=== PATIENT | female | born 1985 | race Caucasian/White ===

== ENCOUNTER → 2016-04-27 | Outpatient (CLI) | payer MEDICAID ==
[~2016-04-27] MED LIST: ACET500T3 PO; CALNTAB PO; PYRI25TA2 PO
== END ==
LOC: HPND 08:42
PROVIDERS: ATTEND Family Medicine
DX: Z34.01 Encounter for supervision of normal first pregnancy, first trimester (principal)
CPT/HCPCS: 76801

== ENCOUNTER 2016-08-26 15:50 | Emergency (ER) | payer MEDICAID ==
[~2016-08-26] VITALS: Ht 160 cm; Wt 59.8 kg
[~2016-08-26 15:50] MED LIST changes: -CALNTAB PO
[2016-08-26 16:02] VITALS: BP 107/67; PULSE 116; RESP 16; TEMP 99.7; O2SAT 99
[2016-08-26] MEDS ORDERED: CALNTAB PO (16:30)
[2016-08-26] MEDS ORDERED: ONDANSETRON ODT 4 MG TAB PO ONE (17:00)
--- NOTE | 2016-08-26 17:05 | PD ---
HPI Chief Complaint: ENT Complaint Time Seen by Provider: 16:57 Travel History International Travel<30 days: No Contact w/Intl Traveler<30days: No Traveled to known affect area: No History of Present Illness HPI 31 year-old 26-week female presents to the emergency room for evaluation of nonproductive cough, sore throat, headache, body aches, nausea, vomiting, and chills. She has not taken her temperature. Patient states she was at the hospital 2 days ago with her son and started feeling ill shortly afterward. She has not taken anything for her symptoms. Normal movement. Next OB appointment is in 11 days. PFS Past Medical History Depression: Yes Diminished Hearing: No Immunizations Current: No ?: : 4 Para: 2 : 2 Past Surgical History Gynecologic Surgery: Yes Social History Alcohol Use: No Tobacco Use: No Substance Use: No Allergies-Medications (Allergen,Severity, Reaction): Coded Allergies: Penicillin (Verified Allergy, Intermediate, Rash, 08/17/16) Reported Meds & Prescriptions Reported Meds & Active Scripts Active Reported Calna ( Vitamin) 1 Tab Tab 1 Tab PO DAILY Review of Systems Except as stated in HPI: all other systems reviewed are Neg Physical Exam Narrative GENERAL: Well-nourished, well-developed female in no acute distress. Afebrile. Ambulatory. SKIN: Warm and dry. HEAD: Normocephalic. EYES: No scleral icterus. No injection or drainage. ENT: Mucosa pink and moist. Mild erythema without exudates. No uvular edema. No uvular, palatal, or tonsillar deviation. Airway patent. Nasal turbinates appear normal without nasal blood, purulent drainage or septal hematoma. EARS: Bilateral pinnae and external canals appear within normal limits. Bilateral tympanic membranes without erythema, dullness or perforation. CARDIOVASCULAR: Regular rate and rhythm without murmurs, gallops, or rubs. RESPIRATORY: Breath sounds equal bilaterally. No accessory muscle use. No crackles, rales, wheezes, or rhonchi. Data Data Last Documented VS Vital Signs Date Time Temp Pulse Resp B/P Pulse Ox O2 Delivery O2 Flow Rate FiO2 08/26/16 16:02 99.7 116 16 107/67 99 Orders Influenzae A/B Antigen (08/26/16 16:56) Group A Rapid Strep Screen (08/26/16 16:56) Ondansetron Odt (Zofran Odt) (08/26/16 17:00) Strep Culture (Group A) (08/26/16 17:00) MDM Medical Decision Making Medical Screen Exam Complete: Yes Emergency Medical Condition: Yes Medical Record Reviewed: Yes Differential Diagnosis Viral syndrome versus influenza versus streptococcal pharyngitis Narrative Course 31-year-old 26 week female presents to the emergency room for evaluation of flulike symptoms for the past 2 days. Patient was recently exposed to germs while waiting 5 hours in another hospital waiting room. Physical exam is reassuring. Throat is moderately erythematous with exudates. Rapid strep is negative. Lung sounds clear and equal bilaterally. Rapid influenza is negative. No evidence of bacterial infection at this time. Patient has follow-up appointment with her OB in 11 days. She was treated conservatively for viral syndrome and told to follow up at that time or return sooner for worsening symptoms. She understands and agrees to this plan. Diagnosis Primary Impression: Viral syndrome Referrals: [facility] Patient Instructions: General Instructions, Viral Syndrome (ED) Additional Instructions: Rest and drink plenty of fluids. Robitussin, cough drops, humidified air for cough. Take Tylenol with food as directed, as needed for pain and fever. Follow-up with a primary care physician. Return to the emergency room for worsening symptoms. Disposition: 01 DISCHARGE HOME Condition: Stable Vicky Pan August 26, 2016 17:05
== END 2016-08-26 17:50 | disposition home or self-care (01) ==
LOC: PHED 15:50 → PHEFT 17:50
DX: O26.92 Pregnancy related conditions, unspecified, second trimester (principal); B34.9 Viral infection, unspecified; R11.2 Nausea with vomiting, unspecified; J02.9 Acute pharyngitis, unspecified; R51 Headache; Z3A.26 26 weeks gestation of pregnancy
CPT/HCPCS: 87081; 87804; 87880; 99283

== ENCOUNTER 2017-08-25 21:28 | Emergency (ER) | payer MEDICAID ==
[~2017-08-25] VITALS: Ht 160 cm; Wt 55.5 kg
[~2017-08-25 21:28] MED LIST changes: -ACET500T3 PO; +CALNTAB PO; +CARPAL TUNNEL W1 MIS TOPICAL; -PYRI25TA2 PO
[2017-08-25 21:41] VITALS: BP 127/73; PULSE 88; RESP 16; TEMP 99; O2SAT 100
--- NOTE | 2017-08-25 21:59 | PD ---
HPI Chief Complaint: Complaint Time Seen by Provider: 21:48 Travel History International Travel<30 days: No Contact w/Intl Traveler<30days: No Traveled to known affect area: No History of Present Illness HPI Patient is a 32-year-old female presenting to the emergency department for evaluation of dysuria, vaginal discharge and irritation. Patient states her symptoms started 2-3 days ago. She reports unprotected sex 2 weeks ago with a new partner. She denies abdominal pain, nausea, vomiting, fever, chills. Symptom onset was gradual. Symptoms are moderate in nature. Patient states she had labs performed today at [facility] because she was nervous about STDs. She states she also had HIV test performed. She denies any significant past medical history. [facility] Past Medical History Depression: Yes Immunizations Current: No ?: Not LMP: IUD : 4 Para: 2 Miscarriage: 1 : 1 Past Surgical History Surgical History: No Previous Surgery Gynecologic Surgery: Yes Social History Alcohol Use: No Tobacco Use: No Substance Use: No Allergies-Medications (Allergen,Severity, Reaction): Coded Allergies: penicillin G (Unverified Allergy, Intermediate, Rash, 01/17/17) Reported Meds & Prescriptions Reported Meds & Active Scripts Active Carpal Tunnel Wrist Stabizer 1 Mis Mis Unit TOPICAL HS Please wear splint on both wrists at night. Reported Calna ( Vitamin) 1 Tab Tab 1 Tab PO DAILY Review of Systems Except as stated in HPI: all other systems reviewed are Neg Genitourinary: Positive: Dysuria, Discharge Physical Exam Narrative GENERAL: Well-developed, well-nourished, alert female. Presenting in no acute distress. SKIN: Warm and dry. HEAD: Atraumatic. Normocephalic. EYES: Pupils equal and round. No scleral icterus. No injection or drainage. ENT: No nasal bleeding or discharge. Mucous membranes pink and moist. NECK: Trachea midline. No JVD. CARDIOVASCULAR: Regular rate and rhythm. GENITOURINARY: Normal external genitalia without lesions or erythema. Vaginal vault without blood, yellow-green drainage noted. Cervical os was closed, friable. Positive cervical motion tenderness. Uterus nontender and nonenlarged. Bilateral adnexa nontender without masses. RESPIRATORY: No accessory muscle use. Clear to auscultation. Breath sounds equal bilaterally. GASTROINTESTINAL: Abdomen soft, non-tender, nondistended. Hepatic and splenic margins not palpable. MUSCULOSKELETAL: Extremities without clubbing, cyanosis, or edema. No obvious deformities. NEUROLOGICAL: Awake and alert. No obvious cranial nerve deficits. Motor grossly within normal limits. Five out of 5 muscle strength in the arms and legs. Normal speech. PSYCHIATRIC: Appropriate mood and affect; insight and judgment normal. Data Data Last Documented VS Vital Signs Date Time Temp Pulse Resp B/P (MAP) Pulse Ox O2 Delivery O2 Flow Rate FiO2 08/25/17 21:41 99.0 88 16 127/73 (91) 100 Orders Orders Gc And Chlamydia Pcr (08/25/17 21:48) Wet Prep Profile (08/25/17 21:48) Urinalysis - C+S If Indicated (08/25/17 21:48) Ed Urine Pregnancytest Poc (08/25/17 21:48) Doxycycline (Vibratab) (08/25/17 23:00) Ceftriaxone Inj (Rocephin Inj) (08/25/17 23:00) Lidocaine 1% Inj (50 Ml) (Xylocaine 1% I (08/25/17 23:00) Metronidazole (Flagyl) (08/25/17 23:00) Azithromycin (Zithromax) (08/25/17 23:00) Urine Culture (08/25/17 22:00) Ceftriaxone Inj (Rocephin Inj) (08/25/17 23:45) Labs Laboratory Tests Test 08/25/17 22:00 08/25/17 22:50 Urine Color YELLOW Urine Turbidity CLEAR Urine pH 6.5 Urine Specific [place] 1.016 Urine Protein 30 mg/dL Urine Glucose (UA) NEG mg/dL Urine Ketones TRACE mg/dL Urine Occult Blood TRACE Urine Nitrite NEG Urine Bilirubin SMALL Urine Urobilinogen 2.0 MG/DL Urine Leukocyte Esterase SMALL Urine RBC 4 /hpf Urine WBC 11 /hpf Urine Squamous Epithelial Cells 6 /hpf Urine Bacteria MANY /hpf Urine Mucus FEW /lpf Microscopic Urinalysis Comment CULTURE INDICATED Clue Cells (Wet Prep) PRESENT Vaginal Trichomonas (Wet Prep) NONE SEEN Vaginal Yeast (Wet Prep) NONE SEEN MDM Medical Decision Making Medical Screen Exam Complete: Yes Emergency Medical Condition: Yes Interpretation(s) Laboratory Tests Test 08/25/17 22:00 08/25/17 22:50 Urine Color YELLOW Urine Turbidity CLEAR Urine pH 6.5 Urine Specific [place] 1.016 Urine Protein 30 mg/dL Urine Glucose (UA) NEG mg/dL Urine Ketones TRACE mg/dL Urine Occult Blood TRACE Urine Nitrite NEG Urine Bilirubin SMALL Urine Urobilinogen 2.0 MG/DL Urine Leukocyte Esterase SMALL Urine RBC 4 /hpf Urine WBC 11 /hpf Urine Squamous Epithelial Cells 6 /hpf Urine Bacteria MANY /hpf Urine Mucus FEW /lpf Microscopic Urinalysis Comment CULTURE INDICATED Clue Cells (Wet Prep) PRESENT Vaginal Trichomonas (Wet Prep) NONE SEEN Vaginal Yeast (Wet Prep) NONE SEEN Vital Signs Date Time Temp Pulse Resp B/P (MAP) Pulse Ox O2 Delivery O2 Flow Rate FiO2 08/25/17 21:41 99.0 88 16 127/73 (91) 100 Differential Diagnosis UTI versus STD versus PID versus other Narrative Course Patient is a 32-year-old female presenting to emergency department for evaluation of dysuria and vaginal discharge and burning. Patient unprotected sex approximately 3 weeks ago. She will be treated empirically for chlamydia, gonorrhea. Wet prep is pending. Wet prep is positive for clue cells. Patient was discharged home with metronidazole and doxycycline. She is encouraged to follow-up with her primary doctor regarding the results of her HIV testing that was performed outpatient today. She is advised to avoid sexual activity for 1 week. She was also advised that if her chlamydia and gonorrhea tests were positive she would be notified, she should then notify sexual partners to be tested and/or treated. She verbalized understanding of these instructions. Patient stable for discharge. Diagnosis Primary Impression: Bacterial vaginosis Additional Impression: PID (pelvic inflammatory disease) [facility]errals[facility] Patient Instructions: Bacterial Vaginosis (ED), General Instructions, Pelvic Inflammatory Disease (ED) Additional Instructions: Follow-up with your primary doctor regarding outpatient test results Avoid sexual activity for 1 week Avoid alcohol while taking metronidazole Complete full course of antibiotics as prescribed Return to emergency department for any new or worsening symptoms Med/Other Pt SpecificInfo: Prescription(s) given Scripts Metronidazole (Metronidazole) 500 Mg Tab 500 MG PO BID for Infection, #14 TAB 0 Refills Prov: Vangie Gray 08/25/17 Doxycycline Hyclate (Doxycycline Hyclate) 100 Mg Cap 100 MG PO BID for Infection, #28 CAP 0 Refills Prov: Vangie Gray 08/25/17 Disposition: 01 DISCHARGE HOME Condition: Stable Vangie Gray August 25, 2017 21:59
[2017-08-25 22:54] LABS: BILIRUBIN, URINE SMALL (NEG); GLUCOSE,URINE NEG (NEG); KETONE, URINE TRACE mg/dL (NEG); NITRITE,URINE NEG (NEG); PH, URINE 6.5 (5.0-8.5); URINE COLOR YELLOW (YELLW/STRAW); URINE LEUKOCYTE ESTERASE SMALL (NEG)
[2017-08-25 22:57] LABS: BLOOD, URINE TRACE (NEG)
[2017-08-25] MEDS ORDERED: DOXYCYCLINE HYCLATE 100 MG TAB PO ONE (23:00)
[2017-08-25] MEDS ORDERED: LIDOCAINE HCL 1% 50 ML VIAL IM ONE (23:00)
[2017-08-25] MEDS ORDERED: metroNIDAZOLE 500 MG TAB PO ONE (23:00)
[2017-08-25] MEDS ORDERED: cefTRIAXone 250 MG VIAL IM ONE (23:00)
[2017-08-25] MEDS ORDERED: AZITHROMYCIN 250 MG TAB PO ONE (23:00)
[2017-08-25 23:05] LABS: BACTERIA, URINE MANY /hpf; MUCUS URINE FEW /lpf (OCC); SQUAMOUS EPITHELIAL CELL URINE 6 /hpf (0-5)
[2017-08-25] MEDS ORDERED: cefTRIAXone 250 MG VIAL IV ONE (23:45)
[2017-08-25] MEDS ORDERED: DOXY100C PO (23:54)
[2017-08-25] MEDS ORDERED: METR1TAB76 PO (23:54)
== END 2017-08-26 00:55 | disposition home or self-care (01) ==
LOC: NEPD 21:28
DX: N76.0 Acute vaginitis (principal); B96.1 Klebsiella pneumoniae [K. pneumoniae] as the cause of diseases classified elsewhere; N73.9 Female pelvic inflammatory disease, unspecified; F32.9 Major depressive disorder, single episode, unspecified; Z88.0 Allergy status to penicillin
CPT/HCPCS: 81001; 84703; 87077; 87086; 87186; 87210; 87491; 87591; 96374; 99284; J0696

== ENCOUNTER 2017-08-29 10:30 | Emergency (ER) | payer MEDICAID ==
[~2017-08-29] VITALS: Ht 160 cm; Wt 54.0 kg
[~2017-08-29 10:30] MED LIST changes: +DOXY100C PO; +METR1TAB76 PO
[2017-08-29 10:45] VITALS: BP 116/58; PULSE 80; RESP 15; TEMP 98.5; O2SAT 100
--- NOTE | 2017-08-29 11:02 | PD ---
HPI Chief Complaint: Abdominal Pain Time Seen by Provider: 10:50 Travel History International Travel<30 days: No Contact w/Intl Traveler<30days: No Traveled to known affect area: No History of Present Illness HPI 32-year-old female presents to the emergency department with complaint of continued urinary frequency, urgency, and dysuria. She was here Monday for the same complaint and was diagnosed with urinary tract infection and bacterial vaginosis and she has been taking her prescriptions of Flagyl and doxycycline as prescribed. She was empirically treated on Monday, in the ER, with Flagyl 2 g, azithromycin 1 g, and Rocephin 250 mg. She has had continued lower abdominal/bladder pressure. Said she vomited this morning. She has had some diarrhea since Monday. Denies fevers. Denies continued vaginal discharge, odor. Denies history of abdominal surgeries. Has tried taking Tylenol for symptom management. Rates pain 10/01. Describes it as a pressure in her bladder. Family care provider is Dr. Landon. Allergies to penicillin. Denies significant past medical history. Has no other medical complaints. No other modifying factors or associated signs and symptoms. PFSH Past Medical History Depression: Yes Immunizations Current: No ?: Not LMP: IUD : 4 Para: 2 Miscarriage: 1 : 1 Past Surgical History Gynecologic Surgery: Yes Social History Alcohol Use: No Tobacco Use: No Substance Use: No Allergies-Medications (Allergen,Severity, Reaction): Coded Allergies: penicillin G (Unverified Allergy, Intermediate, Rash, 08/29/17) Reported Meds & Prescriptions Reported Meds & Active Scripts Active Pyridium (Phenazopyridine HCl) 100 Mg Tab 100 Mg PO Q8H PRN 3 Days Macrobid (Nitrofurantoin Monoh/Nitrofur Macro) 100 Mg Cap 100 Mg PO BID 7 Days Metronidazole 500 Mg Tab 500 Mg PO BID Doxycycline Hyclate 100 Mg Cap 100 Mg PO BID Carpal Tunnel Wrist Stabizer 1 Mis Mis Unit TOPICAL HS Please wear splint on both wrists at night. Reported Calna ( Vitamin) 1 Tab Tab 1 Tab PO DAILY Review of Systems Except as stated in HPI: all other systems reviewed are Neg Physical Exam Narrative GENERAL: Well-nourished, well-developed female patient, in no acute distress; afebrile, nontoxic-appearing SKIN: Warm and dry. No rash. HEAD: Atraumatic. Normocephalic. EYES: Pupils equal and round. No scleral icterus. No injection or drainage. ENT: Mucosa pink and moist. NECK: Trachea midline. CARDIOVASCULAR: Regular rate and rhythm. No murmur appreciated. RESPIRATORY: No accessory muscle use. Clear to auscultation. Breath sounds equal bilaterally. GASTROINTESTINAL: Abdomen soft, non-tender, nondistended. Hepatic and splenic margins not palpable. Bowel sounds are active 4 quadrants. Bladder tender and nondistended. MUSCULOSKELETAL: No obvious deformities. No clubbing. No cyanosis. No edema. BACK: No CVA tenderness NEUROLOGICAL: Awake and alert. Oriented 3. No obvious cranial nerve deficits. Motor grossly within normal limits. Normal speech. Moves all extremities. 5/5 strength to all extremities. PSYCHIATRIC: Appropriate mood and affect; insight and judgment normal. Data Data Last Documented VS Vital Signs Date Time Temp Pulse Resp B/P (MAP) Pulse Ox O2 Delivery O2 Flow Rate FiO2 08/29/17 10:45 98.5 80 15 116/58 (77) 100 Orders Orders Urinalysis - C+S If Indicated (08/29/17 10:50) Urine Culture (08/29/17 11:48) Ed Discharge Order (08/29/17 11:51) Labs Laboratory Tests Test 08/29/17 11:20 Urine Color YELLOW Urine Turbidity CLEAR Urine pH 6.5 Urine Specific [place] 1.013 Urine Protein NEG mg/dL Urine Glucose (UA) NEG mg/dL Urine Ketones NEG mg/dL Urine Occult Blood NEG Urine Nitrite NEG Urine Bilirubin NEG Urine Urobilinogen LESS THAN 2.0 MG/DL Urine Leukocyte Esterase NEG Urine RBC LESS THAN 1 /hpf Urine WBC 3 /hpf Urine Squamous Epithelial Cells <1 /hpf Urine Bacteria RARE /hpf Microscopic Urinalysis Comment CULT NOT INDICATED MDM Medical Decision Making Medical Screen Exam Complete: Yes Emergency Medical Condition: Yes Medical Record Reviewed: Yes Differential Diagnosis UTI, dysuria, cystitis Narrative Course 32-year-old female that was seen on August 25 and is currently being treated for urinary tract infection and bacterial vaginosis with Flagyl and doxycycline. I reviewed her medical record and the urine culture resulted with Klebsiella pneumonia. I discussed the patient with Dr. Mcintyre, my attending physician, and plan of care discussed. Urinalysis ordered. Urinalysis without signs of infection. Dr. Mcintyre recommended urine culture. Urine culture ordered. He also recommended to stop doxycycline and start Macrobid, which is susceptible to Klebsiella pneumonia. Instructed patient to stop doxycycline. Macrobid, Pyridium prescribed for home. Instructed patient to follow up with primary care provider. Patient verbalizes understanding and agreement with treatment plan. Patient is medically cleared and stable for discharge. Discussed reasons to return to the emergency department. Patient agrees with treatment plan. The patients vital signs are stable and the patient is stable for outpatient follow-up and treatment. Patient discharged home, stable and in no acute distress. Diagnosis Primary Impression: Dysuria Referrals: [facility] Primary Care Physician Patient Instructions: Dysuria (ED), General Instructions, Urinary Tract Infection in Women (ED) Additional Instructions: Take antibiotics as prescribed and complete full course Stop doxycycline Take Pyridium for bladder spasms: Pyridium will turn your urine bright orange Drink plenty of fluids Maintain good personal hygiene Follow-up with primary care provider Return to the emergency department immediately with worsening of symptoms Med/Other Pt SpecificInfo: Prescription(s) given Scripts Phenazopyridine (Pyridium) 100 Mg Tab 100 MG PO Q8H Y for DYSURIA for 3 Days, #9 TAB 0 Refills Prov: Rossana Cooper 08/29/17 Nitrofurantoin Monohydrate Macrocrystals (Macrobid) 100 Mg Cap 100 MG PO BID for Infection for 7 Days, #14 CAP 0 Refills Prov: Rossana Cooper 08/29/17 Disposition: 01 DISCHARGE HOME Condition: Stable Rossana Cooper August 29, 2017 11:02
[2017-08-29 11:39] LABS: BACTERIA, URINE RARE /hpf; BILIRUBIN, URINE NEG (NEG); BLOOD, URINE NEG (NEG); GLUCOSE,URINE NEG (NEG); KETONE, URINE NEG (NEG); NITRITE,URINE NEG (NEG); PH, URINE 6.5 (5.0-8.5); SQUAMOUS EPITHELIAL CELL URINE <1 /hpf (0-5); URINE COLOR YELLOW (YELLW/STRAW); URINE LEUKOCYTE ESTERASE NEG (NEG)
[2017-08-29] MEDS ORDERED: PHEN0.4T PO (11:50)
[2017-08-29] MEDS ORDERED: MACR100C2 PO (11:50)
== END 2017-08-29 12:03 | disposition home or self-care (01) ==
LOC: NEPD 10:30
DX: R30.0 Dysuria (principal)
CPT/HCPCS: 81001; 87086; 99283

== ENCOUNTER 2017-09-20 09:05 | Emergency (ER) | payer MEDICAID ==
[~2017-09-20 09:05] MED LIST changes: +MACR100C2 PO; +PHEN0.4T PO
[2017-09-20 09:18] VITALS: BP 121/56; PULSE 80; RESP 16; TEMP 99; O2SAT 100
--- NOTE | 2017-09-20 09:49 | PD ---
HPI Chief Complaint: Oral / Dental Pain or Problem Time Seen by Provider: 09:23 Travel History International Travel<30 days: No Contact w/Intl Traveler<30days: No Traveled to known affect area: No History of Present Illness HPI The patient was seen and examined in the presence of the nurse. Patient complains of vaginal discharge and burning. She was seen here twice for this already. On the first visit she had Klebsiella UTI and bacterial vaginosis. He was treated for both of these. On visit #2 4 days later her urine was completely clean. She does not have any urinary complaints at this time. Denies fever. She has an IUD. Symptom severity is moderate. No alleviating factors. She took her medications as prescribed. No exacerbating factors. PFSH Past Medical History Depression: Yes Immunizations Current: No ?: Not : 4 Para: 2 Miscarriage: 1 : 1 Past Surgical History Gynecologic Surgery: Yes Social History Alcohol Use: No Tobacco Use: No Substance Use: No Allergies-Medications (Allergen,Severity, Reaction): Coded Allergies: penicillin G (Unverified Allergy, Intermediate, Rash, 09/20/17) Reported Meds & Prescriptions Reported Meds & Active Scripts Active No Active Prescriptions or Reported Medications Review of Systems General / Constitutional: No: Fever Eyes: No: Visual changes HENT: No: Headaches Cardiovascular: No: Chest Pain or Discomfort Respiratory: No: Shortness of Breath Gastrointestinal: No: Abdominal Pain Genitourinary: Positive: Discharge, No: Dysuria Musculoskeletal: No: Pain Skin: No Rash Neurologic: No: Weakness Psychiatric: No: Depression Endocrine: No: Polydipsia Hematologic/Lymphatic: No: Easy Bruising Physical Exam Narrative GENERAL: Well-nourished, well-developed patient in no apparent distress. SKIN: Focused skin assessment reveals no rash and nodules. Skin is Warm and dry. HEAD: Atraumatic. Normocephalic. EYES: Pupils equal and round. No scleral icterus. No injection or drainage. ENT: No nasal bleeding or discharge. Mucous membranes pink and moist. NECK: Trachea midline. No JVD. CARDIOVASCULAR: Regular rate and rhythm. No murmur appreciated. RESPIRATORY: No accessory muscle use. Clear to auscultation. Breath sounds equal bilaterally. GASTROINTESTINAL: Abdomen soft, non-tender, nondistended. Hepatic and splenic margins not palpable. MUSCULOSKELETAL: No obvious deformities. No clubbing. No cyanosis. No edema. NEUROLOGICAL: Awake and alert. No obvious cranial nerve deficits. Motor grossly within normal limits. Normal speech. PSYCHIATRIC: Appropriate mood and affect; insight and judgment normal. : No external lesions. Speculum exam reveals white discharge in the vault. No cervical motion tenderness. No adnexal tenderness or mass. Data Data Last Documented VS Vital Signs Date Time Temp Pulse Resp B/P (MAP) Pulse Ox O2 Delivery O2 Flow Rate FiO2 09/20/17 09:18 99.0 80 16 121/56 (77) 100 Orders Orders Wet Prep Profile (09/20/17 09:40) Gc And Chlamydia Pcr (09/20/17 09:40) Metronidazole (Flagyl) (09/20/17 11:00) Labs Laboratory Tests Test 09/20/17 10:00 Clue Cells (Wet Prep) NONE SEEN Vaginal Trichomonas (Wet Prep) PRESENT Vaginal Yeast (Wet Prep) NONE SEEN MDM Medical Decision Making Medical Screen Exam Complete: Yes Emergency Medical Condition: Yes Medical Record Reviewed: Yes Differential Diagnosis Cervicitis, vaginitis, PID Narrative Course I have reviewed the patient's electronic medical record. Reviewed visits from August 25 and August 29 for similar symptoms GC and chlamydia swab was sent Wet prep is positive for trichomonas which was not seen on earlier testing There is no clinical suspicion of PID I gave her 2 g of Flagyl now Had a lengthy discussion regarding condom use and having her partner get treated Diagnosis Primary Impression: Trichomonas vaginitis Additional Instructions: The patient was advised to follow up with their physician and return if they worsen. Med/Other Pt SpecificInfo: Other Scripts No Active Prescriptions or Reported Meds Disposition: 01 DISCHARGE HOME Condition: Stable Kevin Paul MD September 20, 2017 09:49
[2017-09-20] MEDS ORDERED: metroNIDAZOLE 500 MG TAB PO ONE (11:00)
== END 2017-09-20 11:04 | disposition home or self-care (01) ==
LOC: NEPD 09:05
DX: A59.01 Trichomonal vulvovaginitis (principal)
CPT/HCPCS: 87210; 87491; 87591; 99283